=== PATIENT | male | born 1940 | race Caucasian/White ===

== ENCOUNTER 2018-01-09 11:42 | Inpatient (IN) | payer OTHER, BC ==
[~2018-01-09] VITALS: Ht 180.3 cm; Wt 80.0 kg
[2018-01-09] VITALS (24 sets, daily range): BP systolic 116–178; BP diastolic 72–110
--- NOTE | ~2018-01-09 | EKG ---
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: at : 1940 Requested By: Mehdi Lyons Order Number: [id number] MD: Shen Villa Measurements Intervals [place] Rate: 124 P: 76 WV: 163 QRS: 85 QRSD: 80 T: 18 QT: 284 QTc: 408 Interpretive Statements Sinus tachycardia Multiform ventricular premature complexes Borderline right axis deviation Low voltage, extremity and precordial leads Anteroseptal infarct, old Artifact in lead(s) V3,V4,V5 No previous ECG available for comparison Electronically Signed On 01-09-2018 21:37:40 CDT by Shen Villa [email or web address] <ELECTRONICALLY SIGNED> By: Shen Villa MD 01/09/18 2137 [id number] 1151 Shen Villa MD /EPI
--- NOTE | ~2018-01-09 | HC ---
[facility] [place] [address] CONSULTATION Name: JIM BLANKENSHIP Room #: [facility]- ADM IN M.R.#: [id number] Admission: 01/09/18 Attend Phys: Abhijeet Hager MD Discharge: Date of : 38 Report #: [id number] THIS REPORT FOR: //name// CC: [facility] physician/PCP Valente Hager DATE OF SERVICE: 01/09/2018 PULMONARY CONSULTATION REFERRAL PHYSICIAN: Abhijeet Hager MD. REASON FOR REFERRAL: Acute respiratory failure. HISTORY OF PRESENT ILLNESS: The patient is a 77-year-old white male who presents to the Emergency Room with acute respiratory distress. A pulmonary consultation was requested. The patient has known pulmonary disease. He normally gets his care at [facility]. Because of his respiratory condition, he was brought to the [facility] Emergency Department. The patient has known COPD and has been recently treated for COPD with exacerbation. He was given a course of antibiotics along with prednisone without much improvement. With worsening symptoms, 911 or was called. Currently, he is on BiPAP. He appears to be mildly dyspneic. After BiPAP, the patient has trouble maintaining adequate saturations. PAST MEDICAL HISTORY: Notable for COPD, severity unknown; JUAN ANTONIO, on CPAP with oxygen; history of hypertension; hyperlipidemia; skin cancer. PAST SURGICAL HISTORY: Status post herniorrhaphy x 3. ALLERGIES: None to medications. HOME MEDICATIONS: Include Spiriva, ProAir, Lotensin, Cardura. FAMILY HISTORY: Noncontributory. SOCIAL HISTORY: The patient has smoked for about 20 years, quit few years ago. Drinks occasional wine. REVIEW OF SYSTEMS: Deferred as currently the patient is on BiPAP. [facility] [address] [place] [address] CONSULTATION Name: JIM BLANKENSHIP Room #: 238-P [facility] IN M.R.#: [id number] Admission: 01/09/18 Attend Phys: Abhijeet Hager MD Discharge: Date of : 38 Report #: [id number] PHYSICAL EXAMINATION: GENERAL: He appears to be dyspneic, moderately distressed. VITAL SIGNS: Pulse is 100, respiratory rate is 32, blood pressure 145/74 mmHg, saturation 93%. HEENT: Normocephalic, atraumatic. NECK: Supple without any lymphadenopathy or thyromegaly. CHEST: Breath sounds are decreased bilaterally with bilateral wheezes. CARDIOVASCULAR: Normal S1, S2. No murmurs or gallop. There is no JVD. There is no carotid bruit. Pulses are 2+/4+ bilaterally. ABDOMEN: Moderately obese, soft, nontender. No organomegaly or masses felt. GENITOURINARY: Deferred. RECTAL: Deferred. EXTREMITIES: No cyanosis, clubbing, or edema. LABORATORY DATA: Portable chest x-ray grossly unremarkable. Possible right lower lobe atelectasis or infiltrates. Electrolytes are normal except for bicarbonate of 31, WBC 12,100, hemoglobin is 14.0, platelets are normal. No bandemia noted. Arterial blood gas revealed pH 7.31, pCO2 53, pO2 87 on FiO2 of 35%. IMPRESSION: 1. Gbqmg-ay-veqmolv hypercapnic-hypoxic respiratory failure in a 77-year-old white male. Etiology due to exacerbation of chronic obstructive pulmonary disease. 2. Chronic obstructive pulmonary disease, exacerbation. Chest x-ray shows subtle right lower lobe infiltrates, possible lower respiratory tract infection. 3. Chronic hypoxic respiratory failure. The patient appears to have chronic hypercarbia with metabolic compensation. 4. Hypertension. 5. Obstructive sleep apnea, on home CPAP with O2. Per recommendation given progressive respiratory failure needing noninvasive positive pressure ventilation, would recommend ICU monitoring for now. Agree with corticosteroids and broad spectrum antibiotics. 6. Deep venous thrombosis and gastrointestinal prophylaxis is recommended. 7. We will keep saturation around 88-90% to avoid paradoxical hypercarbia. We will follow up arterial blood gas for reassessment. Thank you for this consultation. <ELECTRONICALLY SIGNED> By: Rogerio Dennis MD 01/10/18 1558 [id number] Rogerio Dennis MD /nt
[2018-01-09] MEDS ORDERED: BENAZEPRIL HCL40 MG PO (11:49)
[2018-01-09] MEDS ORDERED: CARDURA4 MG PO (11:49)
[2018-01-09] MEDS ORDERED: SPIRIVA INH (11:50)
[2018-01-09] MEDS ORDERED: PROAIR HFA8.5 GM INH (11:50)
[2018-01-09 12:03] LABS: ABSOLUTE NEUTROPHILS 10.7 thou/uL (1.4-8.2); BASOPHILS 0.2 % (0.0-2.0); EOSINOPHILS 0.1 % (0.0-3.0); HEMATOCRIT 42.1 % (42.0-52.0); LYMPHOCYTES 7.2 % (24.0-44.0); MCH 33.2 pg (26.0-34.0); MCHC 33.2 g/dL (28.0-37.0); MCV 100.1 fL (80.0-100.0); MONOCYTES 3.8 % (1.0-8.0); PLATELET COUNT 245 thou/uL (150-400); POLYS 88.7 % (36.0-66.0); WBC 12.1 thou/uL (4.0-11.0)
[2018-01-09 12:10] LABS: BE(vivo) 0 mmol/L (-2 to +3); HCO3 27.1 mmol/L (22.0-26.0); PCO2 53.9 mmHg (35.0-45.0); PO2 87.9 mmHg (80.0-100.0); sO2 95.9 % (92.0-98.0)
[2018-01-09 12:11] LABS: pH 7.319 (7.360-7.450)
[2018-01-09 12:19] LABS: ANION GAP 5 mmol/L (7-16); BUN 30 mg/dL (7-18); CALCIUM 9.8 mg/dL (8.5-10.1); CHLORIDE 104 mmol/L (98-107); CO2 31 mmol/L (21-32); CREATININE 0.8 mg/dL (0.7-1.3); GLUCOSE 201 mg/dL (74-106); POTASSIUM 4.6 mmol/L (3.5-5.1); SODIUM 140 mmol/L (136-145)
[2018-01-09 12:28] LABS: TROPONIN-I < 0.04 ng/mL (<0.06)
[2018-01-09 17:08] LABS: BE(vivo) 2.2 mmol/L (-2 to +3); HCO3 27.8 mmol/L (22.0-26.0); PCO2 46.7 mmHg (35.0-45.0); PO2 98.7 mmHg (80.0-100.0); pH 7.392 (7.360-7.450); sO2 97.4 % (92.0-98.0)
[2018-01-10] VITALS (29 sets, daily range): BP systolic 90–152; BP diastolic 64–95
[2018-01-10 04:35] LABS: ABSOLUTE NEUTROPHILS 10.2 thou/uL (1.4-8.2); BASOPHILS 0.1 % (0.0-2.0); HEMATOCRIT 39.9 % (42.0-52.0); HEMOGLOBIN 13.4 gm/dL (14.0-18.0); LYMPHOCYTES 1.5 % (24.0-44.0); MCH 33.4 pg (26.0-34.0); MCHC 33.5 g/dL (28.0-37.0); MCV 99.9 fL (80.0-100.0); MONOCYTES 3.2 % (1.0-8.0); PLATELET COUNT 227 thou/uL (150-400); POLYS 95.2 % (36.0-66.0); RDW 13.9 % (10.5-14.5); WBC 10.8 thou/uL (4.0-11.0)
[2018-01-10 04:56] LABS: CALCIUM 9.6 mg/dL (8.5-10.1); CREATININE 0.6 mg/dL (0.7-1.3); MAGNESIUM 2.2 mg/dL (1.8-2.4); POTASSIUM 4.1 mmol/L (3.5-5.1)
[2018-01-10 05:23] LABS: BE(vivo) 3.1 mmol/L (-2 to +3); HCO3 29.6 mmol/L (22.0-26.0); PCO2 52.8 mmHg (35.0-45.0); PO2 93.5 mmHg (80.0-100.0); pH 7.366 (7.360-7.450); sO2 96.8 % (92.0-98.0)
[2018-01-11] VITALS (12 sets, daily range): BP systolic 113–153; BP diastolic 76–94
[2018-01-11 04:59] LABS: BE(vivo) 2.8 mmol/L (-2 to +3); HCO3 29.8 mmol/L (22.0-26.0); PCO2 56.3 mmHg (35.0-45.0); PO2 181.1 mmHg (80.0-100.0); pH 7.341 (7.360-7.450); sO2 99.1 % (92.0-98.0)
[2018-01-11 06:17] LABS: ABSOLUTE NEUTROPHILS 11.6 thou/uL (1.4-8.2); ALBUMIN 3.2 g/dL (3.4-5.0); CALCIUM 8.9 mg/dL (8.5-10.1); CREATININE 0.7 mg/dL (0.7-1.3); HEMATOCRIT 36.7 % (42.0-52.0); LYMPHOCYTES 1.7 % (24.0-44.0); MCH 32.7 pg (26.0-34.0); MCHC 32.7 g/dL (28.0-37.0); MCV 100.2 fL (80.0-100.0); MONOCYTES 7.7 % (1.0-8.0); PLATELET COUNT 195 thou/uL (150-400); POLYS 90.6 % (36.0-66.0); RBC 3.66 mil/uL (4.50-6.00); RDW 13.8 % (10.5-14.5); TOTAL BILIRUBIN 0.3 mg/dL (<0.1-1.0); TOTAL PROTEIN 5.9 g/dL (6.4-8.2); WBC 12.9 thou/uL (4.0-11.0)
[2018-01-11 06:43] LABS: TSH 0.545 uIU/mL (0.358-3.740)
[2018-01-11 07:23] LABS: FOLIC ACID 30.5 ng/mL (8.6-58.9)
[2018-01-12 04:30] VITALS: BP 166/103
[2018-01-12 06:17] LABS: CREATININE 0.7 mg/dL (0.7-1.3); POTASSIUM 4.4 mmol/L (3.5-5.1)
[2018-01-12 07:06] VITALS: BP 164/102
[2018-01-12 07:31] LABS: BASOPHILS 0.2 % (0.0-2.0); HEMATOCRIT 38.1 % (42.0-52.0); HEMOGLOBIN 12.7 gm/dL (14.0-18.0); LYMPHOCYTES 0.8 % (24.0-44.0); MCHC 33.3 g/dL (28.0-37.0); MONOCYTES 4.3 % (1.0-8.0); PLATELET COUNT 200 thou/uL (150-400); POLYS 94.7 % (36.0-66.0); RBC 3.85 mil/uL (4.50-6.00); RDW 13.7 % (10.5-14.5); WBC 9.6 thou/uL (4.0-11.0)
[2018-01-12 20:00] VITALS: BP 146/89
[2018-01-13] MEDS ORDERED: SCOPOLAMINE1 EACH TRANSDERM (11:00)
[2018-01-13] MEDS ORDERED: MORPHINE 44 MG/1 ML IV PUSH ×2 (11:00)
[2018-01-13] MEDS ORDERED: MIRALAX17 GM PO (11:00)
[2018-01-13] MEDS ORDERED: MAG-AL PLUS SUS30 ML PO (11:00)
[2018-01-13] MEDS ORDERED: HALOPERIDOL5 MG/1 ML IV PUSH (11:00)
[2018-01-13] MEDS ORDERED: DUONEB 2.5-0.5 M3 ML INH ×2 (11:00)
[2018-01-13] MEDS ORDERED: HURRICAINE MUCOUS MEM (11:00)
[2018-01-13] MEDS ORDERED: LORAZEPAM 22 MG/1 ML IV PUSH (11:00)
[2018-01-13] MEDS ORDERED: SIMETHICON CHEW80 M1 PO (11:00)
[2018-01-13] MEDS ORDERED: GLUTOSE GEL 1515 G1 PO (11:00)
[2018-01-13] MEDS ORDERED: ONDANSETRON HCL4 M1 IV PUSH (11:00)
[2018-01-13] MEDS ORDERED: [UNRECOGNIZED DRUG - OTHER] IV PUSH (11:00)
[2018-01-13] MEDS ORDERED: GLUCOSE4 GM PO (11:00)
== END 2018-01-13 12:03 | disposition hospice, home (50) | DRG 871 ==
LOC: ER 11:42 → ICU 13:41 → EROBS 13:41 → 2N 14:57 → ICU 17:33 → 4E 01-11 13:43
PROVIDERS: Emergency Medicine; Hospitalist; Internal Medicine Pulmonary Disease; Nurse Practitioner
DX: A41.9 Sepsis, unspecified organism (principal); J96.22 Acute and chronic respiratory failure with hypercapnia; J96.21 Acute and chronic respiratory failure with hypoxia; J44.1 Chronic obstructive pulmonary disease with (acute) exacerbation; G47.33 Obstructive sleep apnea (adult) (pediatric); I10 Essential (primary) hypertension; Z66 Do not resuscitate; E78.5 Hyperlipidemia, unspecified; E66.09 Other obesity due to excess calories; R73.9 Hyperglycemia, unspecified; T38.0X5A Adverse effect of glucocorticoids and synthetic analogues, initial encounter; Y92.89 Other specified places as the place of occurrence of the external cause; Z68.24 Body mass index [BMI] 24.0-24.9, adult; Z87.891 Personal history of nicotine dependence; Z85.828 Personal history of other malignant neoplasm of skin; Z79.899 Other long term (current) drug therapy; Z82.49 Family history of ischemic heart disease and other diseases of the circulatory system; Z80.8 Family history of malignant neoplasm of other organs or systems; J20.9 Acute bronchitis, unspecified
CPT/HCPCS: 10078; 10783; 27001